=== PATIENT | female | born 1995 | race Caucasian/White ===

== ENCOUNTER 2017-02-12 19:10 | Emergency (ER) | payer MEDICAID ==
[~2017-02-12] VITALS: Ht 165.1 cm; Wt 68.0 kg
[~2017-02-12 19:10] MED LIST: IBU600T; LORA10CA7; PRO125RS
[2017-02-12 20:39] VITALS: BP 133/68
== END 2017-02-12 21:00 | disposition home or self-care (01) ==
LOC: ER 19:12
DX: O99.611 Diseases of the digestive system complicating pregnancy, first trimester (principal); K04.7 Periapical abscess without sinus; F12.10 Cannabis abuse, uncomplicated; Z3A.01 Less than 8 weeks gestation of pregnancy

== ENCOUNTER 2018-05-16 19:56 | Emergency (ER) | payer MEDICAID ==
[~2018-05-16] VITALS: Ht 165.1 cm; Wt 69.9 kg
[2018-05-16 20:56] VITALS: BP 122/73
[2018-05-16] MEDS ORDERED: HYDROcodone-ACET 5/325MG TAB PO ONE (21:30)
== END 2018-05-16 23:01 | disposition home or self-care (01) ==
LOC: ER 19:56
DX: S62.396A Other fracture of fifth metacarpal bone, right hand, initial encounter for closed fracture (principal); W22.8XXA Striking against or struck by other objects, initial encounter; Y93.89 Activity, other specified; Y99.8 Other external cause status; Y92.89 Other specified places as the place of occurrence of the external cause
CPT/HCPCS: 29125; 73130